=== PATIENT | male | born 1985 | race African-American/Black ===

== ENCOUNTER 2023-02-14 02:16 | Emergency (ER) | payer SELFPAY ==
[~2023-02-14] VITALS: Ht 177.8 cm; Wt 73.0 kg
[2023-02-14 10:09] LABS: BASOPHILS % 0.6 % (0.0-2.0); EOSINOPHILS % 2.2 % (0.0-5.0); HEMATOCRIT. 39.4 % (42.0-52.0); HEMOGLOBIN. 13.5 g/dL (14.0-18.0); LYMPHOCYTES % 10.3 % (20.0-50.0); MEAN CORPUSCULAR HEMOGLOBIN 29.7 pg (28.0-32.0); MEAN CORPUSCULAR VOLUME 86.7 fL (80.0-94.0); MONOCYTES % 7.5 % (2.0-8.0); NEUTROPHILS % 79.4 % (40.0-76.0); PLATELET 275 x1000/uL (130-400); RED BLOOD CELL COUNT 4.55 mill/uL (4.7-6.1)
[2023-02-14 10:14] LABS: CHLORIDE 108 mEq/L (98-107)
[2023-02-14 10:20] LABS: ETHANOL BLOOD < 10 mg/dL
[2023-02-14] MEDS: OLANZAPINE 5MG TABLET PO SCH ×2 (12:17→21:00)
[2023-02-14] MEDS ORDERED: DIPHENHYDRAMINE 50MG/ML VIAL IM ONE (13:30)
[2023-02-14] MEDS ORDERED: HALOPERIDOL LACTATE 5MG/ML VIAL IM ONE (13:30)
[2023-02-14] MEDS ORDERED: LORAZEPAM 2MG/ML CPJ IM ONE (13:30)
[2023-02-15] MEDS: OLANZAPINE 5MG TABLET PO SCH ×2 (09:45→17:00)
[2023-02-15 10:22] LABS: *AMPHETAMINES SCREEN URINE PRESUMTIVE POSITIVE (NEGATIVE); *BARBITURATES SCREEN URINE NEGATIVE (NEGATIVE); *BENZODIAZEPINES SCREEN URINE NEGATIVE (NEGATIVE); *COCAINE SCREEN URINE NEGATIVE (NEGATIVE); CANNABINOID URINE SCREEN NEGATIVE (NEGATIVE); METHADONE URINE SCREEN NEGATIVE (NEGATIVE); OPIATES URINE SCREEN NEGATIVE (NEGATIVE); PHENCYCLIDINE URINE SCREEN NEGATIVE (NEGATIVE)
[2023-02-15 15:01] VITALS: BP 132/77
== END 2023-02-15 17:20 | disposition home or self-care (01) ==
LOC: ER 02:16
DX: R45.851 Suicidal ideations (principal); F31.9 Bipolar disorder, unspecified; I10 Essential (primary) hypertension; Z20.822 Contact with and (suspected) exposure to COVID-19
CPT/HCPCS: 36415; 80048; 80305; 80307; 80320; 80329; 85025; 87426; 96372; 99284; C9803; J1200; J1630; J2060; Z7610; G0480

== ENCOUNTER 2023-05-14 14:22 | Emergency (ER) | payer BC, MEDICAID ==
[~2023-05-14] VITALS: Ht 177.8 cm; Wt 82.0 kg
[2023-05-14 14:29] VITALS: O2SAT 97
[2023-05-14 15:46] LABS: BASOPHILS % 0.6 % (0.0-2.0); EOSINOPHILS % 2.3 % (0.0-5.0); HEMATOCRIT. 36.5 % (42.0-52.0); HEMOGLOBIN. 11.9 g/dL (14.0-18.0); LYMPHOCYTES % 9.1 % (20.0-50.0); MEAN CORPUSCULAR HEMOGLOBIN 28.2 pg (28.0-32.0); MEAN CORPUSCULAR HGB CONC 32.6 g/dL (31.0-37.0); MEAN CORPUSCULAR VOLUME 86.5 fL (80.0-94.0); MEAN PLATELET VOLUME 7.7 fl (7.4-10.4); MONOCYTES % 7.1 % (2.0-8.0); NEUTROPHILS % 80.9 % (40.0-76.0); PLATELET 280 x1000/uL (130-400); RED BLOOD CELL COUNT 4.22 mill/uL (4.7-6.1); RED CELL DISTRIBUTION WIDTH 15.4 % (11.6-14.6); WHITE BLOOD COUNT 13.8 x1000/uL (4.5-11.0)
[2023-05-14 16:02] LABS: CHLORIDE 106 mEq/L (98-107); INDEX HEMOLYSI 1 (1-3); INDEX ICTERIC 1 (1-4); INDEX LIPEMIC 1 (1-3); POTASSIUM 3.9 mEq/L (3.5-5.1); SODIUM 135 mEq/L (136-145)
[2023-05-14 16:09] LABS: ACETAMINOPHEN <2 ug/mL ug/mL (10-30); ALANINE AMINOTRANSFERASE 48 IU/L (13-61); ALBUMIN 3.5 g/dL (3.4-5.0); ASPARTATE AMINOTRANSFERASE 48 IU/L (15-37); BILIRUBIN TOTAL 0.6 mg/dL (0.1-1.0); CALCIUM 8.5 mg/dL (8.5-10.1); CARBON DIOXIDE 25 mEq/L (21-32); CREATININE 0.9 mg/dL (0.6-1.3); ETHANOL BLOOD < 10 mg/dL (-10); GLUCOSE 86 mg/dL (70-105); PROTEIN TOTAL 7.6 g/dL (6.0-8.3); UREA NITROGEN BLOOD 18 mg/dL (7-21)
[2023-05-14 18:20] LABS: CLARITY URINE CLOUDY (CLEAR); COLOR URINE YELLOW (YELLOW); GLUCOSE URINE NEGATIVE (NEGATIVE); KETONES URINE NEGATIVE (NEGATIVE); LEUKOCYTE ESTERASE URINE NEGATIVE (NEGATIVE); NITRITE URINE NEGATIVE (NEGATIVE); OCCULT BLOOD URINE 3+ (NEGATIVE); PH URINE 7.5 (4.5-8.0); PROTEIN URINE TRACE (NEGATIVE); SPECIFIC GRAVITY URINE 1.016 (1.005-1.030)
[2023-05-14 18:25] LABS: BACTERIA URINE NONE SEEN; WBC URINE 0-2 /hpf (0-2); YEAST URINE NONE SEEN
[2023-05-14 18:36] LABS: *AMPHETAMINES SCREEN URINE PRESUMTIVE POSITIVE (NEGATIVE); *BARBITURATES SCREEN URINE NEGATIVE (NEGATIVE); *BENZODIAZEPINES SCREEN URINE NEGATIVE (NEGATIVE); *COCAINE SCREEN URINE NEGATIVE (NEGATIVE); CANNABINOID URINE SCREEN PRESUMTIVE POSITIVE (NEGATIVE); ECSTASY MDMA SCREEN URINE NEGATIVE (NEGATIVE); METHADONE URINE SCREEN NEGATIVE (NEGATIVE); OPIATES URINE SCREEN NEGATIVE (NEGATIVE); PHENCYCLIDINE URINE SCREEN PRESUMTIVE POSITIVE (NEGATIVE)
[2023-05-14 18:43] LABS: RBC URINE 25-50 /hpf (0-2); SQUAMOUS EPITHELIAL CELL URINE RARE /lpf (RARE/1+)
[2023-05-14] MEDS ORDERED: HALOPERIDOL LACTATE 5MG/ML VIAL IM STA (23:54)
[2023-05-14] MEDS ORDERED: LORAZEPAM 2MG/ML CPJ IM STA (23:54)
[2023-05-16] MEDS ORDERED: LORAZEPAM 2MG/ML CPJ IM ONE (03:45)
[2023-05-16] MEDS ORDERED: HALOPERIDOL LACTATE 5MG/ML VIAL IM ONE (03:45)
[2023-05-16] MEDS ORDERED: DIPHENHYDRAMINE 50MG/ML VIAL IM ONE (03:45)
[2023-05-16] MEDS: OLANZAPINE 5MG TABLET ODT PO SCH ×2 (12:00→17:00)
[2023-05-16] MEDS ORDERED: LORAZEPAM 2MG/ML CPJ IM PRN (21:45)
[2023-05-17] MEDS: OLANZAPINE 5MG TABLET ODT PO SCH (09:00)
[2023-05-17 10:30] VITALS: BP 118/86; PULSE 74; RESP 17; TEMP 97.9
== END 2023-05-17 11:30 | disposition home or self-care (01) ==
LOC: ER 15:23
DX: R45.851 Suicidal ideations (principal); F31.9 Bipolar disorder, unspecified; I10 Essential (primary) hypertension; Z20.822 Contact with and (suspected) exposure to COVID-19
CPT/HCPCS: 80053; 80305; 81003; 80307; 80329; 80320; 85025; 36415; 96372 ×2; 99285; 87426; J1630 ×2; J2060 ×2; C9803; J1200; G0480